=== PATIENT | female | born 1995 | race Caucasian/White ===

== ENCOUNTER 2020-05-20 21:01 | Outpatient (CLI) | payer OTHER | END 2020-05-20 21:49 | disposition home or self-care (01) | LOC: NST 21:01 | PROVIDERS: ATTEND Obstetrics & Gynecology | DX: Z34.82 Encounter for supervision of other normal pregnancy, second trimester (principal) ==

== ENCOUNTER 2020-06-28 14:03 | Outpatient (CLI) | payer OTHER | END 2020-06-28 14:41 | disposition home or self-care (01) | LOC: NST 14:03 | PROVIDERS: ATTEND Obstetrics & Gynecology | DX: Z34.03 Encounter for supervision of normal first pregnancy, third trimester (principal) ==

== ENCOUNTER 2020-07-13 23:14 | Outpatient (CLI) | payer OTHER | END 2020-07-13 23:40 | disposition home or self-care (01) | LOC: NST 23:14 | PROVIDERS: ATTEND Obstetrics & Gynecology | DX: Z34.83 Encounter for supervision of other normal pregnancy, third trimester (principal) ==

== ENCOUNTER → 2020-07-23 08:49 | Outpatient (CLI) | payer OTHER ==
[~2020-07-23 08:49] MED LIST: PRENATAL TABLE1 EAC1 PO
== END | disposition home or self-care (01) ==
LOC: LAB 08:49
PROVIDERS: ATTEND Obstetrics & Gynecology Maternal & Fetal Medicine
DX: Z34.83 Encounter for supervision of other normal pregnancy, third trimester (principal); U07.1 COVID-19; Z20.828 Contact with and (suspected) exposure to other viral communicable diseases

== ENCOUNTER 2020-07-23 09:23 | Inpatient (IN) | payer OTHER ==
[~2020-07-23] VITALS: Ht 160 cm; Wt 83.9 kg
[2020-07-23] MEDS ORDERED: PRENATAL TABLE1 EAC1 PO (16:39)
== END 2020-07-25 12:06 | disposition home or self-care (01) | DRG 807 ==
LOC: NST 09:23 → OB/GYN 16:16 → LDR 16:16 → OB/GYN 18:54
PROVIDERS: ADMIT Obstetrics & Gynecology Maternal & Fetal Medicine; ATTEND Obstetrics & Gynecology Maternal & Fetal Medicine
PROC: 10E0XZZ Delivery of Products of Conception, External Approach (ICD-10-PCS; principal; 2020-07-23)
PROC: 0UQMXZZ Repair Vulva, External Approach (ICD-10-PCS; 2020-07-23)
PROC: 4A1HXFZ Monitoring of Products of Conception, Cardiac Rhythm, External Approach (ICD-10-PCS; 2020-07-23)
DX: O42.013 Preterm premature rupture of membranes, onset of labor within 24 hours of rupture, third trimester (principal); Z37.0 Single live birth; O71.82 Other specified trauma to perineum and vulva; O99.824 Streptococcus B carrier state complicating childbirth; Z3A.36 36 weeks gestation of pregnancy

== ENCOUNTER 2022-01-21 04:04 | Emergency (ER) | payer OTHER ==
[~2022-01-21] VITALS: Ht 160 cm; Wt 73.0 kg
[2022-01-21] MEDS ORDERED: ONDANSETRON ODT4 MG PO (07:32)
[2022-01-21] MEDS ORDERED: PEPCID40 MG PO (07:32)
== END 2022-01-21 07:49 ==
LOC: ER 04:04
DX: R11.10 Vomiting, unspecified (principal); R50.9 Fever, unspecified; Z20.828 Contact with and (suspected) exposure to other viral communicable diseases

== ENCOUNTER 2022-03-09 22:51 | Outpatient (CLI) | payer OTHER ==
[~2022-03-09 22:51] MED LIST changes: +ONDANSETRON ODT4 MG PO; +PEPCID40 MG PO
== END 2022-03-10 09:22 | disposition home or self-care (01) ==
LOC: OBS/DEL 22:51
PROVIDERS: ATTEND Obstetrics & Gynecology
DX: O36.8130 Decreased fetal movements, third trimester, not applicable or unspecified (principal); Z3A.31 31 weeks gestation of pregnancy

== ENCOUNTER → 2022-04-10 13:50 | Outpatient (CLI) | payer OTHER | END | disposition home or self-care (01) | LOC: LAB 13:50 | PROVIDERS: ATTEND Obstetrics & Gynecology Gynecology | DX: O09.93 Supervision of high risk pregnancy, unspecified, third trimester (principal) ==

== ENCOUNTER 2022-04-10 15:36 | Outpatient (CLI) | payer OTHER | END 2022-04-10 16:14 | disposition home or self-care (01) | LOC: NST 15:36 | PROVIDERS: ATTEND Obstetrics & Gynecology Gynecology | DX: Z34.83 Encounter for supervision of other normal pregnancy, third trimester (principal) ==

== ENCOUNTER 2022-04-14 10:39 | Outpatient (CLI) | payer OTHER | END 2022-04-14 12:15 | disposition home or self-care (01) | LOC: NST 10:39 | PROVIDERS: ATTEND Obstetrics & Gynecology Gynecology | DX: Z34.83 Encounter for supervision of other normal pregnancy, third trimester (principal) ==

== ENCOUNTER 2022-04-17 09:38 | Outpatient (CLI) | payer OTHER | END 2022-04-17 10:50 | disposition home or self-care (01) | LOC: NST 09:38 | PROVIDERS: ATTEND Obstetrics & Gynecology Gynecology | DX: Z34.83 Encounter for supervision of other normal pregnancy, third trimester (principal) ==

== ENCOUNTER 2022-04-19 04:14 | Inpatient (IN) | payer OTHER ==
[~2022-04-19] VITALS: Ht 157.5 cm; Wt 78.0 kg
== END 2022-04-21 10:57 | disposition home or self-care (01) | DRG 807 ==
LOC: LDR 04:14 → OB/GYN 04:14
PROVIDERS: ADMIT Obstetrics & Gynecology Maternal & Fetal Medicine; ATTEND Obstetrics & Gynecology Maternal & Fetal Medicine
PROC: 10E0XZZ Delivery of Products of Conception, External Approach (ICD-10-PCS; principal; 2022-04-19)
PROC: 0UQMXZZ Repair Vulva, External Approach (ICD-10-PCS; 2022-04-19)
PROC: 4A1HXCZ Monitoring of Products of Conception, Cardiac Rate, External Approach (ICD-10-PCS; 2022-04-19)
DX: O71.82 Other specified trauma to perineum and vulva (principal); Z37.0 Single live birth; O99.824 Streptococcus B carrier state complicating childbirth; Z3A.37 37 weeks gestation of pregnancy; Z20.822 Contact with and (suspected) exposure to COVID-19